=== PATIENT | female | born 1980 | race Caucasian/White ===

== ENCOUNTER 2022-05-05 09:00 | Outpatient (RCR) | payer BC, SELFPAY | END 2022-05-18 10:20 | disposition home or self-care (01) | LOC: HO.PT 09:00 | PROVIDERS: Visit Provider Physician Assistant | DX: S92.031D Displaced avulsion fracture of tuberosity of right calcaneus, subsequent encounter for fracture with routine healing (principal) | CPT/HCPCS: 97110; 97112; 97140; 97161 ==

== ENCOUNTER 2024-10-25 09:46 | Outpatient (RCR) | payer BC, SELFPAY | END 2024-12-11 12:00 | disposition home or self-care (01) | LOC: HO.PT 09:46 | PROVIDERS: Visit Provider Orthopaedic Surgery Sports Medicine | DX: G54.0 Brachial plexus disorders (principal); M75.02 Adhesive capsulitis of left shoulder | CPT/HCPCS: 97012; 97110; 97112; 97140; 97162; 97535 ==